=== PATIENT | female | born 1960 | race Caucasian/White ===

== ENCOUNTER 2016-05-09 22:01 | Observation (INO) | payer OTHER ==
[~2016-05-09] VITALS: Ht 170.2 cm; Wt 77.2 kg
[2016-05-09 22:55] LABS: HEMOGLOBIN 13.9 g/dL (11.7-16.4)
[2016-05-09] MEDS ORDERED: SODIUM CHLORIDE FLUSH 10ML SYR IVF ONE (23:00)
[2016-05-09] MEDS ORDERED: ASPIRIN 81 MG TABLET CHEW PO ONE (23:00)
[2016-05-09 23:05] LABS: BLOOD UREA NITROGEN 26 mg/dL (7-18)
[2016-05-09 23:11] LABS: ASPARTATE AMINO TRANSFERASE 19 U/L (15-37)
[2016-05-09 23:12] LABS: IS PT STATUS REG ER OR PRE ER? YES
[2016-05-09] MEDS ORDERED: ASPIRIN 81 MG TABLET CHEW ONE (23:17)
[2016-05-09] MEDS ORDERED: LEVO137T3 PO (23:22)
[2016-05-09] MEDS ORDERED: ESTR1TAB15 PO (23:22)
[2016-05-09] MEDS ORDERED: ASPI-621 PO (23:22)
[2016-05-09] MEDS ORDERED: PRED5TAB PO (23:23)
[2016-05-10] MEDS ORDERED: ATORVASTATIN 80 MG TABLET PO SCH (00:30)
[2016-05-10] MEDS ORDERED: LABETALOL 5MG/ML, 20ML IV PRN (00:30)
[2016-05-10] MEDS ORDERED: DOCUSATE 100 MG CAPSULE PO PRN (00:30)
[2016-05-10] MEDS ORDERED: ACETAMINOPHEN 325 MG TABLET PO PRN (00:30)
[2016-05-10] MEDS ORDERED: ENOXAPARIN 40 MG/0.4 ML SQ SCH (00:30)
[2016-05-10] MEDS ORDERED: ONDANSETRON ODT 4 MG PO PRN (00:30)
[2016-05-10] MEDS ORDERED: TRAZODONE 50MG TABLET PO PRN (00:30)
[2016-05-10] MEDS ORDERED: POLYETHYLENE GLYCOL 17 GM PACKET PO PRN (00:30)
[2016-05-10] MEDS ORDERED: BISACODYL 10 MG SUPP PR PRN (00:30)
[2016-05-10 01:25] VITALS: BP 152/65
[2016-05-10 01:34] VITALS: BP 141/76
[2016-05-10] MEDS: SODIUM CHLORIDE 0.9% 1,000 ML IV SCH ×2 (04:43→09:28)
[2016-05-10] MEDS ORDERED: LEVOTHYROXINE 137 MCG TABLET PO SCH (06:00)
[2016-05-10 06:04] LABS: IS PT STATUS REG ER OR PRE ER? NO
[2016-05-10 07:10] VITALS: BP 126/66
[2016-05-10] MEDS ORDERED: REGADENOSON 0.4 MG/5 ML SYRINGE ONE (08:30)
[2016-05-10] MEDS ORDERED: ASPIRIN 81 MG TABLET EC PO SCH (09:00)
[2016-05-10] MEDS ORDERED: ESTRADIOL 1 MG TABLET PO SCH (09:00)
[2016-05-10 12:53] VITALS: BP 129/68
== END 2016-05-10 14:37 | disposition home or self-care (01) ==
LOC: ED 23:12 → INTOOBSV 05-10 00:20 → EDIP 05-10 00:20 → 5SO 05-10 01:15
PROVIDERS: ADMIT Internal Medicine; ATTEND Internal Medicine
DX: R07.89 Other chest pain (principal); I48.0 Paroxysmal atrial fibrillation; R79.89 Other specified abnormal findings of blood chemistry; D72.829 Elevated white blood cell count, unspecified; E03.9 Hypothyroidism, unspecified; R73.9 Hyperglycemia, unspecified; Z79.890 Hormone replacement therapy; Z90.710 Acquired absence of both cervix and uterus; Z98.890 Other specified postprocedural states; Z87.891 Personal history of nicotine dependence
CPT/HCPCS: 36415; 71010; 78452; 80053; 80061; 83036; 83690; 84439; 84443; 84484; 85025; 85379; 85610; 93005; 93017; 96360; 96361; 96372; 99285; A9502; C9898; G0378; J1650; J2785; J7030; J7512

== ENCOUNTER → 2016-11-10 | Outpatient (CLI) | payer OTHER ==
[~2016-11-10] MED LIST: ASPI-621 PO; ESTR1TAB15 PO; LEVO137T3 PO; PRED5TAB PO
== END | disposition home or self-care (01) ==
LOC: CFH 07:42
PROVIDERS: ATTEND Family Medicine
DX: Z12.31 Encounter for screening mammogram for malignant neoplasm of breast (principal)
CPT/HCPCS: 77063; G0202